=== PATIENT | female | born 1955 | race Caucasian/White ===

== ENCOUNTER → 2021-06-18 | Outpatient (CLI) | payer MEDICARE ==
--- NOTE | 2021-06-18 15:07 | MR ---
EXAMINATION TYPE: MR shoulder RT wo con DATE OF EXAM: 06/18/2021 COMPARISON: Radiograph 05/17/2021 HISTORY: 66-year-old female M25.511, right shoulder pain TECHNIQUE: Multiplanar, multisequence imaging of the right shoulder is performed without contrast. FINDINGS: There is some additional tearing of the superior third subscapularis tendon fibers allowing for sligh t medial subluxation of the long biceps tendon along the upper bicipital groove. There is mild tenosy novial fluid. There is soft tissue thickening in the rotator cuff interval and additional thickening of the coracohumeral ligament. Mild fluid tracking along the myotendinous junction of the superior subscapularis. Moderate degenerative change at the acromioclavicular joint with joint space narrowing, degenerative spurring, and capsular hypertrophy. Mild effusion within the subacromial/subdeltoid bursa. There is a intrasubstance tear measuring 9 mm long and 1 cm AP at the junction between the supraspina tus infraspinatus tendons that closely reaches the bursal surface and may have some bursal communicat ion on coronal image 12 and 13. This tear is located 1.6 cm proximal to the footprint below the acrom ion. There is some bursal sided fraying of the anterior supraspinatus tendon. No retracted full-thickness tear is seen. No atrophy of the rotator cuff musculature. The glenohumeral joint is intact. Degenerative signal with suspected small tear of the posterior supe rior glenoid labrum. The remainder of the posterior labrum is degenerative and blunted. No significan t glenohumeral joint effusion. No Hill-Sachs deformity or os acromiale. Patchy red marrow is present in the seen in the setting of a nemia, obesity, smoking, chronic disease. IMPRESSION: 1. Diffuse rotator cuff tendinosis. Bursal sided fraying/shallow tear of the anterior supraspinatous tendon. 2. Additional large intrasubstance tear measuring 9 x 10 mm at the junction between the supraspinatus and infraspinatus tendon that closely reaches and may communicate with the bursal surface. The tear is located 1.6 cm proximal to the footprint, below the acromion. No retracted full-thickness tear is seen. 3. Some attritional tearing along the superior third subscapularis tendon. In addition, increased abn ormal signal in the rotator cuff interval could represent synovitis versus sprain of the coracohumera l ligament/biceps loyd. Findings allow for slight medial subluxation of the LHB tendon in the upper bicipital groove. 4. Posterior superior labral tear with a degenerative and blunted posterior labrum. 5. Moderate AC joint OA.
== END | disposition home or self-care (01) ==
LOC: RADMRIMAIN 12:50
PROVIDERS: ATTEND Orthopaedic Surgery
DX: M75.111 Incomplete rotator cuff tear or rupture of right shoulder, not specified as traumatic (principal); M67.813 Other specified disorders of tendon, right shoulder; M19.011 Primary osteoarthritis, right shoulder

== ENCOUNTER → 2021-12-20 | Outpatient (CLI) | payer MEDICARE ==
--- NOTE | 2021-12-23 12:09 | MR ---
EXAMINATION TYPE: MR knee LT wo con DATE OF EXAM: 12/20/2021 COMPARISON: none HISTORY: Left knee pain TECHNIQUE: Multiplanar, multisequence images of the knee is performed without IV contrast. FINDINGS: MEDIAL MENISCUS: Diminutive posterior horn medial meniscus may be postoperative in nature versus rela yolanda to tear. Correlate clinically. Anterior horn is intact. LATERAL MENISCUS: Anterior and posterior horns are intact without tear. CRUCIATE LIGAMENTS: The anterior and posterior cruciate ligaments are intact and unremarkable. COLLATERAL LIGAMENTS: The medial collateral ligament and lateral collateral ligament complex are inta ct and unremarkable. EXTENSOR MECHANISM: Visualized quadriceps and patellar tendons are intact. EFFUSION: No significant suprapatellar joint effusion. POPLITEAL CYST: No popliteal/schafer cyst. TRICOMPARTMENT SPACES: Mild degenerative narrowing medial tibiofemoral joint space. CARTILAGE: Intact BONE MARROW SIGNAL: Increased signal involving the anterior lateral tibial plateau compatible with tyler ne contusion without fracture. OTHER: No additional significant abnormality is appreciated. IMPRESSION: 1. Diminutive posterior horn medial meniscus may be postoperative in nature versus related to tear. Correlate clinically. 2. Increased signal involving the anterior lateral tibial plateau compatible with bone contusion wit hout fracture.
== END | disposition home or self-care (01) ==
LOC: RADMRIMAIN 19:11
PROVIDERS: ATTEND Orthopaedic Surgery
DX: M23.322 Other meniscus derangements, posterior horn of medial meniscus, left knee (principal)

== ENCOUNTER → 2022-01-22 | Outpatient (CLI) | payer MEDICARE ==
[2022-01-22 22:37] LABS: Basophils # (A) 0.02 X 10*3/uL (0.00-0.10); Basophils % (A) 0.3 %; Eosinophils # (A) 0.07 X 10*3/uL (0.04-0.35); Eosinophils % (A) 1.2 %; HCT 41.1 % (37.2-46.3); HGB 13.9 g/dL (12.0-15.0); Immature Grans, Automated 0.3 %; Lymphocytes # (A) 1.99 X 10*3/uL (0.90-5.00); Lymphocytes % (A) 33.1 %; MCH 32.4 pg (27.0-32.0); MCHC 33.8 g/dL (32.0-37.0); MCV 95.8 fL (80.0-97.0); Mean Platelet Volume 10.7 fL (9.5-12.2); Monocytes # (A) 0.38 X 10*3/uL (0.20-1.00); Monocytes % (A) 6.3 %; NRBC Per 100 WBC 0 /100 WBCS (0.0-0.0); Neutrophils # (A) 3.54 X 10*3/uL (1.80-7.70); Neutrophils % (A) 58.8 %; Platelet Count 228 X 10*3/uL (140-440); RBC 4.29 X 10*6/uL (4.10-5.20); RDW 12.1 % (11.5-14.5); WBC 6.02 X 10*3/uL (4.50-10.00)
[2022-01-22 22:39] LABS: Anion Gap 10.9 mmol/L (10.00-18.00); Carbon Dioxide 25.4 mmol/L (20.0-27.5); Potassium 4.3 mmol/L (3.5-5.5)
== END | disposition home or self-care (01) ==
LOC: LABPAT 14:51
PROVIDERS: ATTEND Orthopaedic Surgery
DX: Z01.818 Encounter for other preprocedural examination (principal); M23.91 Unspecified internal derangement of right knee; R94.31 Abnormal electrocardiogram [ECG] [EKG]
CPT/HCPCS: 80051; 85025; 93005

== ENCOUNTER 2022-03-29 20:04 | Emergency (ER) | payer MEDICARE ==
--- NOTE | 2022-03-29 20:34 | XR ---
EXAMINATION TYPE: XR hand complete LT DATE OF EXAM: 03/29/2022 COMPARISON: NONE HISTORY: Pain. Fall TECHNIQUE: 3 views FINDINGS: IMPRESSION: There is deformity of the carpus with apparent resection of the scaphoid bone. There is a single pin in the capitate and lunate. There is spurring at the carpometacarpal joint. There is narrowing of the carpometacarpal joint spaces. There is narrowing of the DIP joint of the ring finger and little fing er. There is an acute impacted transverse fracture of the distal radial metaphysis. No significant displa cement. No dislocation. Distal ulna is intact. IMPRESSION: Acute distal radius transverse metaphyseal impacted fracture.
--- NOTE | 2022-03-29 20:35 | XR ---
EXAMINATION TYPE: XR wrist complete LT DATE OF EXAM: 03/29/2022 COMPARISON: NONE HISTORY: Pain TECHNIQUE: 3 view FINDINGS: There is an acute impacted transverse nondisplaced fracture distal radial metaphysis. There is previous surgery of the carpus and resection of the scaphoid. There is narrowing of the carpal me tacarpal joint spaces. IMPRESSION: Acute distal radius nondisplaced impacted fracture.
[2022-03-29] MEDS ORDERED: KETOROLAC 15 MG/ML 1 ML VIAL IM STA (21:19)
[2022-03-29] MEDS ORDERED: ACETAMINOPHEN TAB 500 MG TAB PO STA (21:19)
--- NOTE | 2022-03-29 21:39 | ED ---
Upper Extremity HPI - General Chief Complaint: Extremity Injury, Upper Stated Complaint: Fall,arm pain Time Seen by Provider: 03/29/22 21:18 Source: patient, old records reviewed, Caregiver Mode of arrival: ambulatory Limitations: no limitations - History of Present Illness Initial Comments: This is a 67-year-old female who presents ambulatory with complaints of left wrist pain after fall today at 12:30 while in her shed. Patient has had multiple fractures in the past with history of osteoarthritis. She did have fusion of the left wrist in the at [facility] with a fusion and pinning. Patient denies any other injuries MD Complaint: Injury to:: left, wrist -: hour(s) (9) Other Injuries: none Handedness: left Place: outdoors Severity scale (1-10): 7 Improves With: immobilization Context: fall Associated Symptoms: denies other symptoms Treatments Prior to Arrival: NSAIDS, other (tylenol) - Related Data Previous Rx's Medication Instructions Recorded Ibuprofen [Motrin] 600 mg PO Q8HR PRN #30 tab 03/29/22 Allergies Allergy/AdvReac Type Severity Reaction Status Date / Time No Known Allergies Allergy Verified 03/29/22 20:15 Review of Systems ROS Statement: Those systems with pertinent positive or pertinent negative responses have been documented in the HPI. ROS Other: All systems not noted in ROS Statement are negative. Past Medical History Past Medical History: Thyroid Disorder Additional Past Medical History / Comment(s): Graves History of Any Multi-Drug Resistant Organisms: None Reported Past Surgical History: Orthopedic Surgery Past Psychological History: No Psychological Hx Reported Smoking Status: Never smoker Past Alcohol Use History: Rare Past Drug Use History: None Reported General Exam Limitations: no limitations General appearance: alert, in no apparent distress Head exam: Present: atraumatic Respiratory exam: Absent: respiratory distress, accessory muscle use Cardiovascular Exam: Present: regular rate Left Upper Arm exam: Present: full ROM. Absent: tenderness Elbow exam: Present: full ROM. Absent: tenderness Forearm Wrist exam: Present: tenderness, swelling, ecchymosis. Absent: abrasion, deformity, crepitus, erythema Hand Wrist exam: Present: tenderness, swelling (distal radius), ecchymosis. Absent: abrasion, deformity Neuro motor exam: Present: thumb opposition intact, thumb IP flexion intact, thumb adduction intact, fingers 2-5 abduction intact Neurosensory exam: Present: radial nerve intact, ulnar nerve intact, median nerve intact Vascular: Present: normal capillary refill. Absent: vascular compromise Neurological exam: Present: alert, oriented X3, normal gait Psychiatric exam: Present: normal affect, normal mood Skin exam: Present: warm, dry. Absent: cyanosis, diaphoretic, petechiae, pallor Course Vital Signs 03/29/22 03/29/22 03/29/22 20:13 21:08 22:09 Temperature 98.1 F 97.8 F 98.1 F Pulse Rate 84 63 72 Respiratory 18 18 16 Rate Blood Pressure 153/104 173/106 128/82 O2 Sat by Pulse 96 97 99 Oximetry Procedures - Orthopedic Splinting/Casting Injury #1 Side: left Upper Extremity Injury Location: short arm, wrist Upper Extremity Immobilizer: volar splint, Garo wrap, synthetic pre-padded splint Medical Decision Making - Medical Decision Making Patient presents with left wrist pain after trip and fall at home at 12:30 today. Patient has had multiple surgeries of her left wrist in the past with pinning and fusion. Patient is left-handed. There is broken skin or lacerations. She did take Tylenol and Motrin after the injury earlier today with some relief. She has good range of motion. X-ray shows an acute distal radius nondisplaced impacted fracture. She has no complaints of elbow pain, good range of motion, no pain with flexion and extension. Volar splint applied, patient is neurovascularly intact prior to and post splinting. She was offered a sling and declined. Patient's ring in loose and able to freely spin. Directed to remove before swelling increases. She states that she is a patient of Dr Alonzo and will f/u with ortho. She was directed to continue taking Motrin and Tylenol for pain. Rest, ice and elevate. Wear splint until seen by ortho next week and return to the emergency room with a new or concerning symptoms including increased pain, numbness, tingling or pallor. 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 Case discussed with Dr. Brunson Disposition Clinical Impression: Distal radius fracture, left Disposition: HOME SELF-CARE Condition: Good Instructions (If sedation given, give patient instructions): Wrist Fracture in Adults (ED) Additional Instructions: Keep arm elevated and wear splint as applied. Tylenol and Motrin as needed for pain or discomfort. Ice for swelling. Follow-up with orthopedics week. Return to the emergency room if any new or concerning symptoms including increased pain, pallor or numbness. Prescriptions: Ibuprofen [Motrin] 600 mg PO Q8HR PRN #30 tab PRN Reason: Pain Is patient prescribed a controlled substance at d/c from ED?: No Referrals: Steve Uriostegui MD [Primary Care Provider] - 1-2 days Rajesh Alonzo DO [Doctor of Osteopathic Medicine] - 1-2 days Time of Disposition: 22:01
[2022-03-29 22:10] VITALS: BP 128/82; PULSE 72; RESP 16; TEMP 98.1
== END 2022-03-29 22:08 | disposition home or self-care (01) ==
LOC: EC 20:04
DX: S52.502A Unspecified fracture of the lower end of left radius, initial encounter for closed fracture (principal); E07.9 Disorder of thyroid, unspecified; W19.XXXA Unspecified fall, initial encounter
CPT/HCPCS: 99284; 96374; 29125; 73110; 73130; J1885

== ENCOUNTER 2023-07-16 14:55 | Emergency (ER) | payer MEDICARE ==
[2023-07-16] MEDS: SODIUM CHLORIDE 0.9% 1,000 ML IV STA (16:03)
[2023-07-16] MEDS: KETOROLAC 15 MG/ML 1 ML VIAL IVP STA (16:06)
[2023-07-16] MEDS: ONDANSETRON 4 MG/2 ML VIAL IVP STA ×2 (16:06→17:48)
--- NOTE | 2023-07-16 16:13 | ED ---
Upper Extremity HPI - General Chief Complaint: Extremity Injury, Upper Stated Complaint: Fall Time Seen by Provider: 07/16/23 15:33 Source: patient, RN notes reviewed Mode of arrival: ambulatory Limitations: no limitations - History of Present Illness Initial Comments: This is a 68-year-old female who presents to the emergency department for a left arm injury. She was coming off of a ladder, when she fell about 5 feet onto her left arm. Denies hitting her head or sustaining any loss consciousness. Not taking any blood thinners. Currently complaining of pain to her left elbow. She is unable to move the arm due to her pain. MD Complaint: Injury to:: left, elbow - Related Data Previous Rx's Medication Instructions Recorded Ibuprofen [Motrin] 600 mg PO Q8HR PRN #30 tab 03/29/22 Ibuprofen [Motrin] 800 mg PO Q8H PRN #30 tab 07/16/23 Allergies Allergy/AdvReac Type Severity Reaction Status Date / Time shellfish derived [Shellfish] Allergy Unknown Verified 07/16/23 15:26 Review of Systems ROS Statement: Those systems with pertinent positive or pertinent negative responses have been documented in the HPI. ROS Other: All systems not noted in ROS Statement are negative. Past Medical History Past Medical History: Thyroid Disorder Additional Past Medical History / Comment(s): Graves History of Any Multi-Drug Resistant Organisms: None Reported Past Surgical History: Orthopedic Surgery Past Psychological History: No Psychological Hx Reported Smoking Status: Never smoker Past Alcohol Use History: Rare Past Drug Use History: None Reported General Exam Limitations: no limitations General appearance: alert, in distress Head exam: Present: atraumatic, normocephalic, normal inspection Respiratory exam: Present: normal lung sounds bilaterally. Absent: respiratory distress, wheezes, rales, rhonchi, stridor Cardiovascular Exam: Present: regular rate, normal rhythm, normal heart sounds. Absent: systolic murmur, diastolic murmur, rubs, gallop, clicks Extremities exam: Present: other (Significant swelling and tenderness over the left elbow. Range of motion limited by pain. 2+ radial pulses.) Neurological exam: Present: alert, oriented X3, CN II-XII intact Psychiatric exam: Present: normal affect, normal mood Course Vital Signs 07/16/23 07/16/23 07/16/23 15:23 16:34 19:18 Temperature 98.0 F 97.5 F L Pulse Rate 64 61 60 Respiratory 16 18 16 Rate Blood Pressure 142/80 135/75 129/82 O2 Sat by Pulse 98 96 93 L Oximetry 07/16/23 21:10 Temperature 98.0 F Pulse Rate 78 Respiratory 16 Rate Blood Pressure 142/60 O2 Sat by Pulse 98 Oximetry Procedures - Orthopedic Splinting/Casting Injury #1 Side: left Upper Extremity Injury Location: long arm Upper Extremity Immobilizer: sling/shoulder immobilizer, posterior splint Medical Decision Making - Medical Decision Making This is a 68-year-old female who presents to the emergency department for a left elbow injury. Was pt. sent in by a medical professional or institution? @ -No Did you speak to anyone other than the patient for history? @ -No Did you review nursing and triage notes? @ -Yes, and I agree, it is accurate with regards to the patient's symptoms. Were old charts reviewed? @ -No Differential Diagnosis? @ -Differential Musculoskeletal: Muscular strain, contusion, ligament sprain, fracture, arthritis, septic arthritis, bursitis, cellulitis, muscle spasm, nerve compression, DVT, arterial occlusion, herpes zoster, electrolyte abnormality, tumor.... This is not meant to be in all inclusive list EKG interpreted by me (3pts min.)? @ -Not obtained X-rays interpreted by me (1pt min.)? @ -X-ray of the left elbow obtained. My interpretation identifies a fracture of the left olecranon. CT interpreted by me (1pt min.)? @ -CT scan of the left elbow obtained. My interpretation identifies a comminuted fracture of the left olecranon. U/S interpreted by me (1pt. min.)? @ -Not obtained What testing was considered but not performed? (CT, X-rays, U/S, labs)? Why? @ -None What meds were considered but not given? Why? @ -None Did you discuss the management of the patient with other professionals? @ -Yes, Dr. Beth, who advised putting the patient in a splint and having her follow up in the office on Thursday. Did you reconcile home meds? @ -No Was smoking cessation discussed for >3mins.? @ -No Was critical care preformed (if so, how long)? @ -No Were there social determinants of health that impacted care today? How? (Homelessness, low income, unemployed, alcoholism, drug addiction, transp ortation, low edu. Level, literacy, decrease access to med. care, halfway, rehab)? @ -No Was there de-escalation of care discussed even if they declined? (Discuss DNR or withdrawal of care, Hospice)? @ -No What co-morbidities impacted this encounter? (DM, HTN, Smoking, COPD, CAD, Cancer, CVA, Hep., AIDS, mental health diagnosis, sleep apnea, morbid obesity)? @ -None Was patient admitted / discharged? @ -Discharged. X-ray of the left elbow obtained demonstrating an acute comminuted displaced fracture of the left olecranon. Case discussed with Dr. Beth, orthopedics, who the patient is established with. He advised that the patient could be put in a splint and have her follow-up in the office on Thursday. He did order a computed tomography scan of the elbow for surgical planning, which was done prior to discharge. This redemonstrated the comminuted fracture of the left olecranon. Her pain was well controlled in the emergency department, however she did have notable nausea and vomiting from the Dilaudid. This was eventually controlled in the emergency department. Prescription for ibuprofen provided with dosing instructions reviewed. Patient declined any stronger pain medications due to adverse reactions. Advised alternating the Ibuprofen with Tylenol. She was put in a long-arm posterior splint with an arm sling and discharged home in stable condition. Undiagnosed new problem with uncertain prognosis? @ -None Drug Therapy requiring intensive monitoring for toxicity (Heparin, Nitro, Insulin, Cardizem)? @ -None Were any procedures done? @ -Long arm posterior splint Diagnosis/symptom? @ -Fall, left olecranon fracture Acute, or Chronic, or Acute on Chronic? @ -Acute Uncomplicated (without systemic symptoms) or Complicated (systemic symptoms)? @ -Uncomplicated Side effects of treatment? @ -None Exacerbation, Progression, or Severe Exacerbation] @ -Not applicable Poses a threat to life or bodily function? @ -Yes, this will limit her use of the left arm for the mean time. Return precautions reviewed in depth, the patient is instructed to return to the emergency department with any new, worsening, or concerning symptoms. Patient verbalized understanding. This case was discussed in detail with the attending ED physician, Dr. Brunson. Presentation, findings, and treatment plan discussed in detail as well. - Radiology Data Radiology results: report reviewed, image reviewed Disposition Clinical Impression: Fall, Fracture of left olecranon process Disposition: HOME SELF-CARE Instructions (If sedation given, give patient instructions): Elbow Fracture (ED), How to Use a Sling (ED), Splint Care (ED) Additional Instructions: Return to the emergency department with any new, worsening, or concerning symptoms. Apply ice for 15-20 minutes every 2-3 hours. Alternate with ibuprofen and Tylenol as needed for pain relief. Follow up with Dr. Beth on . Contact the office tomorrow and let them know that he requested you be seen on Thursday, and they will schedule you for a follow-up appointment. Prescriptions: Ibuprofen [Motrin] 800 mg PO Q8H PRN #30 tab PRN Reason: Pain Is patient prescribed a controlled substance at d/c from ED?: No Referrals: Steve Uriostegui MD [Primary Care Provider] - 1-2 days Ric Beth DO [Doctor of Osteopathic Medicine] - 07/20/23
--- NOTE | 2023-07-16 16:31 | XR ---
EXAMINATION TYPE: XR elbow complete LT DATE OF EXAM: 07/16/2023 4:23 PM INDICATION: Patient age:Female; 68 years old; Reason for study: Injury; PHH. COMPARISON: None TECHNIQUE: The left elbow was examined in AP, lateral, and oblique projections. FINDINGS: Acute comminuted displaced fracture of the olecranon with approximately 2 cm of displacemen t of the largest fracture fragments. There is associated soft tissue edema and hematoma with joint ef fusion. No definitive dislocation. IMPRESSION: Acute comminuted displaced fracture of the olecranon.
[2023-07-16] MEDS: HYDROmorphone 0.5 MG/0.5 ML SYRINGE IVP STA (16:32)
[2023-07-16] MEDS: ONDANSETRON 4 MG ODT STARTER PACK 2 TAB BTL PO STA (17:49)
--- NOTE | 2023-07-16 18:51 | CT ---
EXAMINATION TYPE: CT elbow LT wo con with 3-D reconstruction DATE OF EXAM: 07/16/2023 COMPARISON: 07/16/2023 radiographs HISTORY: left elbow pain TECHNIQUE: Departmental protocol. Automated exposure control for dose reduction was used. CT DLP: 1307.2 mGycm FINDINGS: The olecranon comminuted intra-articular fracture fragments are well seen on the axial, coronal, and sagittal data sets. The humerus shows 2 fracture fragments at the lateral epicondyle The radius is negative for fracture. IMPRESSION: Comminuted left elbow fracture.
[2023-07-16] MEDS: PROCHLORPERAZINE INJ 10 MG/2 ML VIAL IVP STA ×2 (18:58→19:20)
[2023-07-16 19:21] VITALS: RESP 16
[2023-07-16] MEDS: METOCLOPRAMIDE 5 MG/ML 2 ML VIAL IVP STA (19:57)
[2023-07-16] MEDS: diphenhydrAMINE 50 MG/ML 1 ML VIAL IVP STA (19:58)
[2023-07-16] MEDS: droPERidol 5 MG/2 ML VIAL IVP ONE (20:14)
[2023-07-16 22:01] VITALS: BP 142/60; PULSE 78; TEMP 98
== END 2023-07-16 21:10 | disposition home or self-care (01) ==
LOC: EC 14:55
DX: S52.022A Displaced fracture of olecranon process without intraarticular extension of left ulna, initial encounter for closed fracture (principal); Z91.013 Allergy to seafood; W18.30XA Fall on same level, unspecified, initial encounter
CPT/HCPCS: 73080; 73200; 99284; 96374; 96375 ×4; 96376; 96361; 29125; J0780; J2405; J1885; S0119; J1170; J1790

== ENCOUNTER 2023-07-28 10:51 | Day surgery (SDC) | payer MEDICARE ==
[2023-07-22 16:20] VITALS: BMI 26.1
--- NOTE | 2023-07-27 12:44 | P.HPOR ---
History of Present Illness H&P Date: 07/27/23 Subjective: This is a 68 year old female that presents today for initial evaluation regarding a left elbow injury that occurred on 07/16/2023. She was taking down a wreath and was on the fourth or fifth step of the latter when she missed the step and fell directly onto her elbow. She was seen at the emergency department where x-rays and computed tomography scan were performed. She was placed in a long arm splint and a sling. She has a history of multiple surgeries on this left wrist including a 4 corner fusion done over 20 years ago. As well as a distal radius fracture treated nonoperatively in 2021. She has pain and swelling in the elbow, forearm and hand. She currently denies any numbness or tingling. Physical Examination: LUE: AIN/PIN/Radial/Ulnar/Median motor intact. Radial/Ulnar/Median SILT. 2+/4 Radial/Ulnar pulses palpated. 5/5 APB, 5/5 FDI. Fingers swollen with bruising/swelling present. Arm stable in sling/long arm splint. Imaging: X-Rays of the left elbow 3v reviewed from ED visit demonstrate a comminuted intra-articular olecranon fracture. Avulsion fracture at the site of the LUCL origin near the lateral epicondyle of the distal humerus. Impression: 1.) Left displaced intra-articular olecranon fracture 2.) Minimally displaced left distal humeral lateral epicondyle avulsion fracture Plan: Diagnosis and treatment options were discussed with the patient. The complexity of her injury was discussed and I recommend surgical intervention. She is scheduled for a left olecranon open reduction internal fixation with possible left elbow lateral ulnar collateral ligament repair. We discussed if the elbow is unstable after fixation of the olecranon she may require a lateral ulnar collateral ligament repair depending on the stability of the elbow. Risks and benefits of surgery including bleeding, infection, damage to surrounding tissue, need for further surgery, residual numbness, possibility of hardware causing irritation and post traumatic arthritis were discussed and the patient wished to go forward with surgery.The patient was agreeable with this plan. CC: Dr Steve Uriostegui MD -Ric Beth DO Orthopedic Hand/Upper Extremity Surgeon Past Medical History Past Medical History: Hyperlipidemia, Musculoskeletal Disorder, Osteoarthritis (OA), Thyroid Disorder Additional Past Medical History / Comment(s): Graves Disease with radiation treatment. Osteoporosis. CRPS-1 Disorder - right arm. Hx RSV. Vertigo. History of Any Multi-Drug Resistant Organisms: None Reported Past Surgical History: Orthopedic Surgery Additional Past Surgical History / Comment(s): Varicose vein procedure. Past Anesthesia/Blood Transfusion Reactions: Motion Sickness, Postoperative Nausea & Vomiting (PONV) Additional Past Anesthesia/Blood Transfusion Reaction / Comment(s): Vertigo. Past Psychological History: No Psychological Hx Reported Smoking Status: Former smoker Past Alcohol Use History: Rare Additional Past Alcohol Use History / Comment(s): Smoked a "LONG LONG time ago". Past Drug Use History: None Reported - Past Family History Father Family Medical History: Cancer Additional Family Medical History / Comment(s): Prostate cancer. Sister(s) Family Medical History: Deep Vein Thrombosis (DVT) Medications and Allergies Home Medications Medication Instructions Recorded Confirmed Type Ibuprofen [Motrin] 600 mg PO Q8HR PRN #30 tab 03/29/22 07/22/23 Rx Acetaminophen [Tylenol Extra 500 - 1,000 mg PO Q4-6H PRN 07/22/23 07/22/23 History Strength] Cholecalciferol (Vitamin D3) 50 mcg PO DAILY 07/22/23 07/22/23 History [Vitamin D3 (50 Mcg = 2000 Iu)] Ezetimibe [Zetia] 10 mg PO HS 07/22/23 07/22/23 History HYDROcodone/APAP 5-325MG [[place] 1 tab PO DIRECTED PRN 07/22/23 07/22/23 History 5-325] Levothyroxine Sodium [Synthroid] 88 mcg PO QAM 07/22/23 07/22/23 History Loratadine [Claritin] 10 mg PO HS 07/22/23 07/22/23 History Allergies Allergy/AdvReac Type Severity Reaction Status Date / Time hydromorphone [From Dilaudid] Allergy Rash/Hives Verified 07/22/23 16:00 shellfish derived [Shellfish] Allergy Unknown Verified 07/22/23 16:00 Physical Examination Osteopathic Statement: *. No significant issues noted on an osteopathic structu ral exam other than those noted in the History and Physical/Consult.
[~2023-07-28 10:51] MED LIST: LIDOCAINE 1% (10MG/ML) FOR IV START INTRADERMA PRN; droPERidol 5 MG/2 ML VIAL IVP ONE; fentaNYL (PF) 50 MCG/ML 2 ML AMP IV PRN
[2023-07-28] MEDS: DEXAMETHASONE SOD PHOSPHATE 4 MG/ML 1 ML VIAL IV ONE (12:05)
[2023-07-28] MEDS: LACTATED RINGERS 1,000 ML IV SCH (12:05)
[2023-07-28] MEDS: ONDANSETRON 4 MG/2 ML VIAL IVP ONE (12:05)
[2023-07-28 12:13] VITALS: RESP 16
[2023-07-28] MEDS: MIDAZOLAM 2 MG/2 ML VIAL IVP ONE (12:20)
[2023-07-28] MEDS ORDERED: DEXAMETHASONE SOD PHOSPHATE 4 MG/ML 1 ML VIAL ONE (12:50)
[2023-07-28] MEDS ORDERED: MIDAZOLAM 2 MG/2 ML VIAL ONE (12:50)
[2023-07-28] MEDS ORDERED: fentaNYL (PF) 50 MCG/ML 2 ML AMP ONE (12:50)
[2023-07-28] MEDS ORDERED: ePHEDrine 50 MG/ML 1 ML VIAL ONE (12:50)
[2023-07-28] MEDS ORDERED: PROPOFOL 10 MG/ML 20 ML VIAL IV ONE (12:50)
[2023-07-28] MEDS ORDERED: PHENYLEPHRINE 10 MG/ML VIAL ONE (12:50)
[2023-07-28] MEDS ORDERED: ROPIVACAINE 5 MG/ML 30 ML VIAL ONE (12:50)
[2023-07-28] MEDS ORDERED: diphenhydrAMINE 50 MG/ML 1 ML VIAL ONE (12:50)
[2023-07-28] MEDS ORDERED: LIDOCAINE 1% INJ 10MG/ML (20 ML MDV) ONE (12:50)
[2023-07-28] MEDS ORDERED: GLYCOPYRROLATE 0.2 MG/ML 2 ML VIAL ONE (12:50)
[2023-07-28] MEDS: LACTATED RINGERS 1,000 ML IV ONE (14:50)
--- NOTE | 2023-07-28 15:04 | P.OP ---
Date of Procedure: 07/28/23 Preoperative Diagnosis: 1.) Left intra-articular olecranon fracture 2.) Left minimally displaced lateral condyle fracture Postoperative Diagnosis: 1.) Left intra-articular olecranon fracture 2.) Left minimally displaced lateral condyle fracture Procedure(s) Performed: 1.) Left intra-articular olecranon fracture open reduction internal fixation 2.) Closed treatment of left minimally displaced distal humerus lateral condyle fracture Implants: Perry Olecranon Variax locking plate Anesthesia: ANNIE, regional Surgeon: Ric Beth Estimated Blood Loss (ml): 20 Pathology: none sent Condition: stable Disposition: PACU Description of Procedure: This is a 68year old female who sustained a left olecranon fracture after falling from a ladder and presents today for surgical intervention. Risks and benefits of surgery were discussed with the patient including bleeding, damage to surrounding tissue, possible need for irritable hardware removal in the future, infection, and need for further surgery and the patient wished to proceed with surgical intervention. The patient was seen in the pre-operative area by myself. Consent and H&P were completed and updated. The correct extremity was marked in the pre-operative area by myself and all other questions were answered. Operative Narrative: The patient was brought to the operating room by the department of anesthesia. They were placed supine on the operative table and general anesthesia was performed. The patient was then drifted off to sleep by the department of anesthesia. A nonsterile tourniquet was then applied to the operative extremity and the patient was then placed in a frye bag lateral position with all rusty prominences well padded, axillary role was placed. The upper extremity was then prepped and draped in normal sterile fashion. Pre- operative time out was performed indicating the correct patient, procedure and laterality. All in the room agreed. Pre-operative antibiotics were given prior to skin incision. A nonsterile tourniquet was then applied to the operative extremity and the right upper extremity was then prepped and draped in normal sterile fashion. The operative extremity was the exsanguinated with an esmarch bandage and the tourniquet was inflated to 250mmHg. 15 blade scalpel was utilized to make a longitudinal incision over the posterior aspect of the elbow that was directed slightly lateral around the olecranon process. Full thickness flaps were then made down to the fracture site of the olecranon. Bovie cautery was utilized for hemostasis. Hematoma was evacuated with suction and irrigation, there was extensive comminution medially and laterally with non viable lateral cortical and medial bone which was removed. The joint was irrigated of loose bodies. Fracture ends were cleaned of any soft tissue debris. Plate was placed over reduced fracture and held with K-wires. Imaging confirmed acceptable reduction of the articular surface in both AP and lateral views. A Perry Variax left sided Olecranon plate was then applied to the reduced fracture. The triceps insertion was split longitudinally to make room for the tip of the plate to hug the olecranon process curvature. A non- locking screw was drilled distally in the shaft to compress the plate to bone. Imaging then confirmed good location of the plate on the ulna. The proximal screws were then unicortically drilled and filled with locking screws taking care to not penetrate the articular surface. The remainder of the distal shaft screws were filled purchasing 6 cortices distal to the fracture line. A long home run screw was then drilled and measured and a size 50 locking screw was placed as the final homerun screw. The elbow as then ranged and full smooth flexion and extension of the ulna was able to be achieved as well as full pronation/supination of the forearm. Final imaging confirmed correct screw length with no intra-articular penetration at the ulnohumeral or proximal radial ulnar joint. The wound was then irrigated. 3-0 Vicryl suture was used to repair the splint triceps to cover the plate. Layered closure was performed with 2-0 vicryl suture followed by 3-0 VIcryl suture and 4-0 nylon suture. Sterile dressing was applied consisting of a adaptic, 4x4s, cast padding, and a posterior slab plaster splint. Tourniquet was let down and the hand had immediate perfusion. The patient was then woken by the department of anesthesia and transferred to PACU in stable condition. Ric Beth D.O. Orthopedic Hand/Upper Extremity Surgeon
[2023-07-28] MEDS ORDERED: HYDROcodone/APAP 5-325MG 1 EACH TAB ONE (16:10)
[2023-07-28] MEDS: HYDROcodone/APAP 5-325MG 1 EACH TAB PO ONE (16:15)
[2023-07-28 16:45] VITALS: BP 138/78; PULSE 75; TEMP 97
--- NOTE | 2023-07-29 07:52 | P.ANPRN ---
Procedure Note - Anesthesia - Nerve Block Performed Left Supraclavicular Single Time Out Performed: Yes Date of Procedure: 07/29/23 Procedure Start Time: : Procedure Stop Time: Location of Patient: PreOp Indication: Acute Post-Operative Pain, Requested by Surgeon Sedation Type: Sedate with meaningful contact maintained Preparation: Sterile Prep Position: Supine Needle Types: Pajunk Needle Gauge: 21 Ultrasound used to visualize needle placement: Yes Ultrasound used to observe medication spread: Yes Blood Aspirated: No Pain Paresthesia on Injection Noted: No Resistance on Injection: Normal Image Stored and Saved: Yes Events: Uneventful and Well Tolerated (Ropivacaine 0.5% 20 cc plus dexamethasone 4 mg)
== END 2023-07-28 16:50 | disposition home or self-care (01) ==
LOC: OR 10:51
PROVIDERS: ATTEND Orthopaedic Surgery Hand Surgery
DX: S52.592A Other fractures of lower end of left radius, initial encounter for closed fracture (principal); S52.032A Displaced fracture of olecranon process with intraarticular extension of left ulna, initial encounter for closed fracture; E78.5 Hyperlipidemia, unspecified; M19.90 Unspecified osteoarthritis, unspecified site; M81.0 Age-related osteoporosis without current pathological fracture; Z79.890 Hormone replacement therapy; Z87.891 Personal history of nicotine dependence; Z88.5 Allergy status to narcotic agent; X58.XXXA Exposure to other specified factors, initial encounter
CPT/HCPCS: 64415; 24685; 25605; C1713; J2250; J1200; J1100; J0690; J2405; J2001; J3010; J2795; J2704; J2371

== ENCOUNTER → 2024-01-05 | Outpatient (CLI) | payer MEDICARE ==
--- NOTE | 2024-01-05 18:41 | CT ---
EXAMINATION TYPE: CT elbow LT wo con CT DLP: 220.1 mGycm, Automated exposure control for dose reduction was used. DATE OF EXAM: 01/05/2024 5:32 PM COMPARISON: Multiple left elbow radiographs most recently 12/14/2023, CT left elbows 07/16/23 CLINICAL INDICATION:Female, 68 years old with history of M25.522 PAIN IN LEFT ELBOW; PHH, Pain in lef t elbow, hardware evaluation TECHNIQUE: Axial images were obtained of the left elbow without the use of IV contrast. Additional c oronal and sagittal reformatted images and soft tissue and bone window were obtained for review. 3-D reconstruction was created on a separate workstation. FINDINGS: Postfixation changes with fixation plate and screws involving the olecranon. Hardware appears intact with appropriate alignment. This creates streak artifact which limits evaluation. There has been some interval fusion changes of the olecranon fracture fragments with trace remaining fracture line visib le (series 13, image 40). Continued nonfused fracture fragment along the medial aspect of the acromio n on (series 12, image 24). Healing fracture of the lateral epicondyle with some fusion identified. Continued fracture line is vi sible (series 12, image 34). No new acute fracture or dislocation. Minimal soft tissue swelling overlying the olecranon. No visual ized organized fluid collections. No sizable joint effusion. No focal muscular atrophy identified. IMPRESSION: Postsurgical changes of the olecranon. Hardware appears intact with appropriate alignment. No new fra ctures or dislocation. Healing changes of the olecranon and lateral epicondylar fractures with some e ffusion identified. Small fracture lines persist.
== END | disposition home or self-care (01) ==
LOC: RADCTMAIN 16:26
PROVIDERS: ATTEND Orthopaedic Surgery Hand Surgery
DX: M25.522 Pain in left elbow (principal)

== ENCOUNTER → 2024-03-07 | Outpatient (CLI) | payer MEDICARE ==
--- NOTE | 2024-03-11 08:23 | MR ---
EXAMINATION TYPE: MR shoulder LT wo con DATE OF EXAM: 03/07/2024 COMPARISON: Outside left shoulder x-ray February 23, 2024 HISTORY: Lt shoulder pain since fall injury July 16 TECHNIQUE: Multiplanar, multisequence imaging of the left shoulder is performed without contrast. FINDINGS: Rotator Cuff: Increased signal in the infraspinatus and to a greater degree supraspinatus tendons wit h surrounding fluid. Heterogeneity with increased signal in the infraspinatus tendon. Rotator cuff mu scle bulk is preserved. Acromioclavicular Joint: Moderate narrowing and capsular hypertrophy. Mild to moderate spurring. Glenohumeral Joint: Small to moderate sized joint effusion. Narrowing is present. No significant spur ring. Labrum: Increased signal superior labrum consistent with degenerative tear. Biceps Tendon: The long head of biceps is in normal location within bicipital groove. Bone marrow signal: Subchondral cystic change at the acromioclavicular joint and the anterior aspect of the humeral head. Other: No additional significant abnormality is appreciated. IMPRESSION: 1. Tendinosis of the subscapularis tendon. Tendinosis of the infraspinatus and supraspinatus tendons. 2. Degenerative superior labral tear. 3. Moderate degenerative changes are present as detailed above [facility], , 03/11/2024 8:21 AM
== END | disposition home or self-care (01) ==
LOC: RADMRIMAIN 11:06
PROVIDERS: ATTEND Orthopaedic Surgery
DX: M25.512 Pain in left shoulder

== ENCOUNTER → 2024-06-21 | Outpatient (CLI) | payer MEDICARE ==
--- NOTE | 2024-06-22 12:28 | MR ---
EXAMINATION TYPE: MR shoulder RT wo con DATE OF EXAM: 06/21/2024 4:54 PM COMPARISON: Prior MRI right shoulder June 18, 2021. Outside right shoulder x-ray June 15, 2024 CLINICAL INDICATION: Female, 69 years old with history of M25.511 PAIN IN RIGHT SHOULDER, Right shoul geovani pain and limited range of motion for several months, history of surgery 1990 IV Contrast: cc (None if empty) TECHNIQUE: Multiplanar, multisequence imaging of the right shoulder is performed without contrast. FINDINGS: Rotator Cuff: There is more prominent increased signal in the infraspinatus tendon. There is persiste nt increased signal in the supraspinatus tendon. Some surrounding fluid is present. There is new kip cular tear at insertion near the junction of the supraspinatus and infraspinatus tendons measuring ap proximately 1.3 cm AP diameter sagittal image 6. Intact but persistent heterogeneous subscapularis te ndon suggesting partial tear/tendinosis. Rotator cuff muscle bulk is preserved. Acromioclavicular Joint: Moderate to severe narrowing greatest posterior aspect. Moderate capsular hy pertrophy and spurring. Loss of underlying fat plane is redemonstrated. Glenohumeral Joint: Small to moderate size joint effusion redemonstrated. No significant spurring. Labrum: Heterogeneous increased signal likely reflecting degenerative tear. Biceps Tendon: The long head of biceps is in normal location within bicipital groove. Bone marrow signal: Areas of subchondral cystic change throughout the humeral head are more prominent versus prior. Similar findings noted at the acromioclavicular joint. Other: No additional significant abnormality is appreciated. IMPRESSION: 1. More prominent tendinosis and partial tearing of the supraspinatus and to greater degree infraspin atus tendons. 2. Persistent superior labral tear. Persistent tendinosis/partial tearing of the subscapularis tendon . 3. 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 [facility], , 06/22/2024 12:25 PM
== END | disposition home or self-care (01) ==
LOC: RADMRIMAIN 16:15
PROVIDERS: ATTEND Orthopaedic Surgery
DX: M19.011 Primary osteoarthritis, right shoulder (principal); M67.813 Other specified disorders of tendon, right shoulder; M75.111 Incomplete rotator cuff tear or rupture of right shoulder, not specified as traumatic

== ENCOUNTER → 2024-07-12 | Outpatient (CLI) | payer MEDICARE ==
[2024-07-12 10:59] LABS: Basophils # (A) 0.02 X 10*3/uL (0.00-0.10); Basophils % (A) 0.3 %; Eosinophils # (A) 0.13 X 10*3/uL (0.04-0.35); Eosinophils % (A) 2.2 %; HCT 42.2 % (37.2-46.3); Lymphocytes # (A) 2.49 X 10*3/uL (0.90-5.00); Lymphocytes % (A) 42.1 %; MCH 31.6 pg (27.0-32.0); MCHC 33.2 g/dL (32.0-37.0); MCV 95.3 FL (80.0-97.0); Mean Platelet Volume 10.7 FL (9.5-12.2); Monocytes # (A) 0.42 X 10*3/uL (0.20-1.00); Monocytes % (A) 7.1 %; NRBC Per 100 WBC 0 X 10*3/uL (0.00-0.01); Neutrophils # (A) 2.85 X 10*3/uL (1.80-7.70); Neutrophils % (A) 48.1 %; Platelet Count 253 X 10*3/uL (140-440); RBC 4.43 X 10*6/uL (4.10-5.20); RDW 12.1 % (11.5-14.5); WBC 5.92 X 10*3/uL (4.50-10.00)
[2024-07-12 19:37] LABS: Anion Gap 13.5 mmol/L (4.00-12.00); Carbon Dioxide 23.5 mmol/L (21.6-31.8); Potassium 4.1 mmol/L (3.5-5.5)
== END | disposition home or self-care (01) ==
LOC: LABWHC1 08:03
PROVIDERS: ATTEND Orthopaedic Surgery
DX: Z01.818 Encounter for other preprocedural examination (principal); M75.41 Impingement syndrome of right shoulder
CPT/HCPCS: 36415; 80051; 85025; 93005